=== PATIENT | female | born 1980 | race Caucasian/White ===

== ENCOUNTER 2017-07-27 08:36 | Emergency (ER) | payer SELFPAY ==
[~2017-07-27] VITALS: Ht 167.6 cm; Wt 76.4 kg
[2017-07-27 08:53] VITALS: Ht 167.6 cm; Wt 76.4 kg
[2017-07-27 10:06] VITALS: BP 124/56
== END 2017-07-27 10:14 | disposition home or self-care (01) ==
LOC: ED 08:36
DX: S30.0XXA Contusion of lower back and pelvis, initial encounter (principal); Z88.6 Allergy status to analgesic agent; Z88.8 Allergy status to other drugs, medicaments and biological substances; W17.89XA Other fall from one level to another, initial encounter; Y93.51 Activity, roller skating (inline) and skateboarding; Y92.89 Other specified places as the place of occurrence of the external cause; Y99.8 Other external cause status
CPT/HCPCS: J3010; Q0162